=== PATIENT | male | born 1940 | race Caucasian/White ===

== ENCOUNTER 2017-04-13 08:04 | Day surgery (SDC) | payer OTHER ==
[2017-04-08 15:13] VITALS: BMI 24.4
[2017-04-13] MEDS ORDERED: PROPOFOL 20 ML ONE ×2 (09:01)
[2017-04-13 09:49] VITALS: BP 120/56; PULSE 58; TEMP 97.8
--- NOTE | 2017-04-14 13:24 | PATH ---
Surgical Pathology Report Patient Name: [facility]. Rec. #: [id number] /Age/Gender: 1940 (Age: 76) / M Account: [id number] Location: Taken: 04/13/2017 Received: 04/13/2017 Reported: 04/14/2017 Physicians: Cleveland Rae M.D. Specimen(s) Received POLYP RIGHT COLON Clinical History Preoperative diagnosis: History of polyps Postoperative diagnosis: Colon polyp Final Diagnosis COLON, RIGHT, POLYPECTOMY: TUBULAR ADENOMA. Comment: Recommend correlation with clinical findings and follow up as clinically indicated. Electronically Signed Taiwo Carroll M.D. Gross Description Received in formalin, labeled "polyp right colon" is a llanes, irregular portion of soft tissue measuring 0.4 cm. in greatest dimension. The specimen is submitted in toto in one cassette. 04/13/201704/13/2017
== END 2017-04-13 09:50 | disposition home or self-care (01) ==
LOC: FASU-ENDO 08:04
PROVIDERS: ATTEND Internal Medicine Gastroenterology
PROC: 0DBK8ZX Excision of Ascending Colon, Via Natural or Artificial Opening Endoscopic, Diagnostic (ICD-10-PCS; principal; 2017-04-13 08:30)
DX: Z86.010 Personal history of colon polyps (principal); D12.2 Benign neoplasm of ascending colon
CPT/HCPCS: 88305-TC

== ENCOUNTER 2021-04-27 19:11 | Emergency (ER) | payer OTHER ==
[2021-04-27 20:10] VITALS: BP 165/77; PULSE 70; TEMP 97.9; BMI 23.3
[2021-04-27] MEDS ORDERED: IBUPROFEN 600 MG TABLET (FP) PO ONE ×2 (21:16→21:18)
== END 2021-04-28 02:52 | disposition left against medical advice (07) ==
LOC: JERFT 19:11
DX: R07.82 Intercostal pain (principal); W01.0XXA Fall on same level from slipping, tripping and stumbling without subsequent striking against object, initial encounter
CPT/HCPCS: 71046-TC-FY; 71101-TC-RT-FY; 71250-TC; 99285-25